=== PATIENT | male | born 1975 | race Caucasian/White ===

== ENCOUNTER 2019-11-24 13:21 | Emergency (ER) | payer OTHER, BC ==
[~2019-11-24] VITALS: Ht 185.4 cm; Wt 111.1 kg
[~2019-11-24 13:21] MED LIST: Motrin,Rufen800 MG PO; PERCOCET 325 MG1 TA3 PO; SKELAXIN800 MG PO
== END 2019-11-24 15:03 | disposition left against medical advice (07) ==
LOC: ED 13:21
DX: M54.9 Dorsalgia, unspecified (principal); R51 Headache; R42 Dizziness and giddiness; R41.0 Disorientation, unspecified; R11.2 Nausea with vomiting, unspecified; V89.2XXA Person injured in unspecified motor-vehicle accident, traffic, initial encounter; Y93.89 Activity, other specified; Y92.89 Other specified places as the place of occurrence of the external cause; Y99.8 Other external cause status

== ENCOUNTER 2019-11-26 21:25 | Inpatient (IN) | payer BC ==
[~2019-11-26] VITALS: Ht 185.4 cm; Wt 111.8 kg
[2019-11-26] VITALS (11 sets, daily range): BP systolic 119–138; BP diastolic 57–88
[2019-11-26 22:07] LABS: BASO % 0.2 % (0.0-1.0); EOS % 0.1 % (1.0-4.0); HEMATOCRIT 37.8 % (42.0-52.0); LYMPH # 0.9 10*3/uL (1.3-4.4); MEAN CELL VOLUME 85.1 fl (80.0-94.0); MEAN CORPUSCULAR HGB 28.4 pg (27.0-31.0); MEAN CORPUSCULAR HGB CONC 33.3 g/dl (33.0-37.0); MEAN PLATELET VOLUME 10.7 fl (9.6-12.3); MONO # 1.3 10*3/uL (0.1-1.0); MONO % 8.6 % (3.0-9.0); NEUT # 12.6 10*3/uL (2.3-7.9); NEUT % 83.6 % (47.0-73.0); PLATELET COUNT AUTOMATED 269 10*3/uL (130-400); RED BLOOD COUNT 4.44 10*6/uL (4.50-5.90); RED CELL DISTRI WIDTH 11.6 % (0-14.5); WHITE BLOOD COUNT 15.1 10*3/uL (4.8-10.8)
[2019-11-26 22:17] LABS: ACT PARTIAL THROMBO TIME 31.3 SECONDS (20.0-32.1)
[2019-11-26 22:22] LABS: ALBUMIN 3.3 gm/dl (3.1-4.5); ALKALINE PHOSPHATASE 120 U/L (45-117); BUN 11 mg/dl (7-24); CHLORIDE 97 mmol/L (98-107); CREATININE 0.87 mg/dL (0.70-1.30); POTASSIUM 3.7 mmol/L (3.5-5.1); SGOT/AST 87 IU/L (3-35); SGPT/ALT 74 U/L (12-78); SODIUM 130 mmol/L (136-145); TOTAL PROTEIN 7.6 gm/dL (6.4-8.2)
[2019-11-26 22:24] LABS: TROPONIN I < 0.015 ng/ml (<0.045)
[2019-11-26 23:31] LABS: URINE AMPHETAMINES < 1000 (1000ng/ml); URINE BARBITURATES < 200 (200ng/ml); URINE BENZODIAZEPINES < 200 (200ng/ml); URINE CANNABINOIDS (THC) < 50 (50ng/ml); URINE COCAINE < 300 (300ng/ml); URINE METHADONE < 300 (300ng/ml); URINE OPIATES < 300 (300ng/ml)
[2019-11-26 23:32] LABS: URINE PHENCYCLIDINE < 25 (25ng/ml)
[2019-11-27] VITALS (14 sets, daily range): BP systolic 99–130; BP diastolic 61–83
[2019-11-27 04:06] LABS: BASO % 0.2 % (0.0-1.0); EOS % 0.1 % (1.0-4.0); HEMATOCRIT 41.1 % (42.0-52.0); LYMPH # 1.3 10*3/uL (1.3-4.4); LYMPH % 10.3 % (27.0-41.0); MEAN CELL VOLUME 87.6 fl (80.0-94.0); MEAN CORPUSCULAR HGB 28.8 pg (27.0-31.0); MEAN CORPUSCULAR HGB CONC 32.8 g/dl (33.0-37.0); MEAN PLATELET VOLUME 10.6 fl (9.6-12.3); MONO # 1.1 10*3/uL (0.1-1.0); MONO % 8.6 % (3.0-9.0); NEUT # 10.3 10*3/uL (2.3-7.9); NEUT % 80.5 % (47.0-73.0); PLATELET COUNT AUTOMATED 294 10*3/uL (130-400); RED BLOOD COUNT 4.69 10*6/uL (4.50-5.90); RED CELL DISTRI WIDTH 11.7 % (0-14.5); WHITE BLOOD COUNT 12.8 10*3/uL (4.8-10.8)
[2019-11-27 04:24] LABS: ALKALINE PHOSPHATASE 121 U/L (45-117); BUN 8 mg/dl (7-24); CHLORIDE 101 mmol/L (98-107); CHOLESTEROL 142 mg/dL (<200); CREATININE 0.88 mg/dL (0.70-1.30); HDL CHOLESTEROL 55 mg/dl (40-60); LDL CHOLESTEROL 78 mg/dL (9-159); SGOT/AST 72 IU/L (3-35); SGPT/ALT 73 U/L (12-78); SODIUM 135 mmol/L (136-145); TOTAL PROTEIN 6.7 gm/dL (6.4-8.2); TRIGLYCERIDES 47 mg/dl (<150); VLDL CHOLESTEROL 9 mg/dL (6-40)
[2019-11-27 04:25] LABS: FREE T4 1.27 ng/dl (0.76-1.46)
[2019-11-27 10:55] LABS: VITAMIN D, 25-HYDROXY 21.2 ng/mL (30-100)
[2019-11-28] VITALS (13 sets, daily range): BP systolic 104–128; BP diastolic 61–82
[2019-11-29] VITALS: BP 113/71
[2019-11-29] MEDS ORDERED: ABILIFY5 MG PO ×2 (11:27→12:12)
[2019-11-29] MEDS ORDERED: METOPROLOL SUC100 M1 PO (11:27)
[2019-11-29] MEDS ORDERED: TOPROL XL100 MG PO (12:12)
== END 2019-11-29 13:52 | disposition home or self-care (01) | DRG 308 ==
LOC: ED 21:25 → EDHOLD 11-27 00:06 → ICCU 11-27 00:06 → 5E 11-27 13:12
PROVIDERS: Emergency Medicine; Internal Medicine; ADMIT Student in an Organized Health Care Education/Training Program
DX: I48.91 Unspecified atrial fibrillation (principal); G93.41 Metabolic encephalopathy; R65.11 Systemic inflammatory response syndrome (SIRS) of non-infectious origin with acute organ dysfunction; E87.1 Hypo-osmolality and hyponatremia; E44.0 Moderate protein-calorie malnutrition; E87.6 Hypokalemia; R73.9 Hyperglycemia, unspecified; R74.0 Nonspecific elevation of levels of transaminase and lactic acid dehydrogenase [LDH]; D64.9 Anemia, unspecified; F17.210 Nicotine dependence, cigarettes, uncomplicated; F11.10 Opioid abuse, uncomplicated; M54.9 Dorsalgia, unspecified; E87.8 Other disorders of electrolyte and fluid balance, not elsewhere classified; E55.9 Vitamin D deficiency, unspecified; F32.9 Major depressive disorder, single episode, unspecified; Z71.6 Tobacco abuse counseling; Z68.33 Body mass index [BMI] 33.0-33.9, adult